=== PATIENT | female | born 1990 | race Caucasian/White ===

== ENCOUNTER 2018-04-07 05:58 | Emergency (ER) | payer BC ==
--- NOTE | 2018-04-07 06:22 | EDM.PDOC ---
ED HPI GENERAL MEDICAL PROBLEM - General Chief Complaint: Abdominal Pain Stated Complaint: nausea, vomitting Time Seen by Provider: 04/07/18 06:15 Source of Information: Reports: Patient, Old Records ([facility] chart/EMR) History Limitations: Reports: No Limitations - History of Present Illness INITIAL COMMENTS - FREE TEXT/NARRATIVE: The patient drove herself to the emergency room via private automobile for evaluation of rest of nausea and generalized abdominal pain and cramping with patient rating her discomfort at 10/10 on arrival. Patient did have an omelette at the [employer] in [place] for breakfast yesterday, however no direct known food poisoning, recent exposure to infection, etc. She initially had some nausea with 2 loose stools yesterday with symptoms starting at about 13:00 hours yesterday afternoon. Symptoms have progressed during the course of the night with at least 10 episodes of emesis since about midnight. She denies any gross hematuria, colic, or other UTI symptoms. Patient has not taken any medications for her symptoms to this point. No recent history of heartburn, significant diarrhea, melena, gross hematochezia, or any food intolerance, including fatty foods, etc.. The patient denies any chest pain/pressure, heart flutter, dizziness, orthostasis, orthopnea, diaphoresis, paresthesias, recent decreased exercise tolerance, or any other anginal-type symptoms. The patient also denies any recent fever, cough, wheezing, dyspnea, etc.. Onset: Gradual Onset Date: 04/06/18 Onset Time: 13:00 Duration: Constant, Getting Worse Location: Reports: Abdomen. Denies: Head, Face, Neck, Back, Pelvis, Upper Extremity, Left, Upper Extremity, Right, Lower Extremity, Left, Radiates to Quality: Reports: Ache, Other (Abdominal cramping) Severity: Severe Improves with: Reports: None Worsens with: Reports: None Context: Reports: Other (As above) Associated Symptoms: Reports: Nausea/Vomiting. 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 Denies: Glaucoma, Hard of Hearing, Macular Degeneration, Retinal Detachment Other HEENT History: Patient wears glasses Cardiovascular History: Reports: Other (See Below). Denies: Afib, Aneurysm, Arrhythmia, Blood Clots/VTE/DVT, CAD, Heart Murmur, High Cholesterol, Hypertension, Syncope Other Cardiovascular History: Patient does not know cholesterol status. Respiratory History: Reports: None. Denies: Asthma, COPD, Intubation, Difficult , Intubation, Previous, PE, Pneumothorax, Sleep Apnea, TB Gastrointestinal History: Reports: None, GERD. Denies: Celiac Disease, Cholelithiasis, Chronic Constipation, Chronic Diarrhea, Gastritis, GI Bleed, Hepatitis, Inflammatory Bowel Disease, Irritable Bowel Syndrome, Jaundice, Pancreatitis, PUD Genitourinary History: Reports: Hydronephrosis, Other (See Below). 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 Denies: Dysfunctional Uterine Bleeding, Endometriosis, Fibroids, Spontaneous , Therapeutic : 3 Para: 3 Other OB/BYN History: LMP on 03/18/18. 2 deliveries by with one delivery by LTCS secondary to breech presentation with no other problems during pregnancies or deliveries with all full-term deliveries. Musculoskeletal History: Reports: Back Pain, Chronic, Neck Pain, Chronic, Osteoarthritis. Denies: Amputation, Arthritis, Fracture, Gout, RA, SLE Neurological History: Denies: Cerebral Aneurysms, Concussion, CVA, Headaches, Chronic, Head Trauma, Migraines, Neuropathy, Peripheral, Seizure, TIA Psychiatric History: Reports: Anxiety, Depression. Denies: Abuse, Victim of, ADD, ADHD, Addiction, Psych Hospitalization(s), PTSD, Suicide Attempt, Suicidal Ideation Endocrine/Metabolic History: Reports: Hypothyroidism, Other (See Below). Denies : Diabetes, Gestational, Diabetes, Type I, Diabetes, Type II, Diabetes Mellitus , Type 3c, IDDM Other Endocrine/Metabolic History: hypothyroidism with first Hematologic History: Reports: None. Denies: Anemia, Blood Transfusion(s), Iron Deficiency Immunologic History: Reports: None. Denies: AIDS, HIV, SLE Oncologic (Cancer) History: Reports: None. Denies: Basal Cell Carcinoma, Breast , Hodgkin's Lymphoma, Leukemia, Lymphoma, Malignant Melanoma, Non-Hodgkin's Lymphoma, Squamous Cell Carcinoma Dermatologic History: Reports: None. Denies: Eczema, Psoriasis - Infectious Disease History Infectious Disease History: Reports: Chicken Pox. Denies: None, C-Difficile, Measles, Meningitis, Mononucleosis, MRSA, Mumps, Pertussis (Whooping Cough), Rheumatic Fever, RSV, Rubella, Scarlet Fever, Shingles, TB, VRE - Past Surgical History Head Surgeries/Procedures: Reports: None HEENT Surgical History: Reports: Myringotomy w Tube(s), Oral Surgery, Tonsillectomy, Other (See Below). Denies: Adenoidectomy, Cataract Surgery, Eye Surgery, Laser Surgery, LASIK, Naso-Sinus Surgery Other HEENT Surgeries/Procedures: PE tubes in April 1993 at age 3. Tonsillectomy on 10/10/02. Tooth extractions. Cardiovascular Surgical History: Reports: None. Denies: Varicose Respiratory Surgical History: Reports: None. Denies: Thoracentesis GI Surgical History: Denies: Appendectomy, Cholecystectomy, Colonoscopy, EGD, Hernia, Abdominal, Hernia, Inguinal, Hernia Repair/Other Female Surgical History: Reports: None, Section. Denies: Breast Biopsy, D&C, Tubal Ligation Endocrine Surgical History: Reports: None. Denies: Thyroid Biopsy Neurological Surgical History: Reports: None. Denies: C-Spine, Discectomy, Intracranial, Laminectomy, Lumbar Spine, Sacral Spine, Spinal Fusion, Thoracic Spine, Vertebroplasty Musculoskeletal Surgical History: Reports: None. Denies: Arthroscopic Procedure , Carpal Tunnel, Ganglion Cyst, Joint Replacement, ORIF, Shoulder Surgery Oncologic Surgical History: Reports: None Dermatological Surgical History: Reports: None - Past Imaging History Past Imaging History: Reports: CAT Scan (CT of the head on 07/11/02), Ultrasound ( Multiple OB ultrasounds last on 11/15/12.), Upper GI X-Ray/Series (03/03/2000) Social & Family History - Tobacco Use Smoking Status *Q: Never Smoker Tobacco Use Within Last Twelve Months: No Used Tobacco, but Quit: No Smoking Cessation Information Provided To Patient: No Second Hand Smoke Exposure: Yes Source of Second Hand Smoke Exposure: smokes Second Hand Smoke Education Provided: Yes - Caffeine Use Caffeine Use: Reports: Coffee (3 cups per day), Soda (5 cans per day). Denies: Energy Drinks, Tea - Alcohol Use Alcohol Use History: Yes Days Per Week of Alcohol Use: 0 Number of Drinks Per Day: 3 Number of Drinks Per Day Comment: Usually drinks beer once per month. No previous DWIs, problems with alcohol abuse, etc. Total Drinks Per Week: 0 Alcohol Use in Last Twelve Months: Yes Alcohol Use Frequency: Socially - Recreational Drug Use Recreational Drug Use: No Drug Use in Last 12 Months: No Recreational Drug Type: Denies: Amphetamines (Speed), Cocaine, Heroin, Inhalants (Glues, Solvents, Aerosols), LSD (Acid), Marijuana/Hashish, Methamphetamine, Morphine, Oxycodone - Living Situation & Occupation Living situation: Reports: (2013, 3 children), with Family ( and children) Occupation: Employed ([employer]) ED ROS GENERAL - Review of Systems Review Of Systems: ROS reveals no pertinent complaints other than HPI. ED EXAM, GI/ABD - Physical Exam Exam: See Below Exam Limited By: No Limitations General Appearance: Alert, WD/WN, No Apparent Distress Eyes: Bilateral: Normal Appearance (No nystagmus; patient wearing glasses), EOMI (PERRLA) Ears: Normal External Exam, Normal Canal, Hearing Grossly Normal, Normal TMs Nose: Normal Inspection, Normal Mucosa, No Blood Throat/Mouth: Normal Inspection, Normal Lips, Normal Teeth, Normal Gums, Normal Oropharynx, Normal Voice, No Airway Compromise. No: Dysphagia, Perioral Cyanosis Head: Atraumatic, Normocephalic. No: Facial Swelling, Facial Tenderness, Sinus Tenderness Neck: Normal Inspection, Supple, Non-Tender, Full Range of Motion. No: Lymphadenopathy (L), Lymphadenopathy (R), Thyromegaly Respiratory/Chest: No Respiratory Distress, Lungs Clear, Normal Breath Sounds, No Accessory Muscle Use, Chest Non-Tender. No: Pleural Rub, Retractions Cardiovascular: Normal Peripheral Pulses, Regular Rate, Rhythm, No Edema, No Gallop, No JVD, No Murmur, No Rub. No: Gallop/S3, Gallop/S4, Friction Rub GI/Abdominal Exam: Normal Bowel Sounds, Soft, Non-Tender, No Organomegaly, No Distention, No Abnormal Bruit, No Mass, Pelvis Stable, Other (obese). No: Guarding, Rebound (Female) Exam: Deferred Rectal (Female) Exam: Deferred Back Exam: Normal Inspection, Full Range of Motion. No: CVA Tenderness (L), CVA Tenderness (R), Muscle Spasm Extremities: Normal Inspection, Normal Range of Motion, Non-Tender, No Pedal Edema, Normal Capillary Refill. No: Lisa's Sign Neurological: Alert, Oriented, CN II-XII Intact, Normal Cognition, Normal Gait, No Motor/Sensory Deficits Psychiatric: Normal Affect, Normal Mood Skin Exam: Warm, Dry, Intact, Normal Color, No Rash Lymphatic: No Adenopathy Course - Vital Signs Last Recorded V/S: Last Vital Signs Temp 36.4 C 04/07/18 05:59 Pulse 66 04/07/18 07:55 Resp 14 04/07/18 07:55 BP 141/80 H 04/07/18 07:55 Pulse Ox 96 04/07/18 07:55 Vital Signs - 24 hr 04/07/18 04/07/18 05:59 07:55 Temperature [ 36.4 C Oral] Pulse, 70 66 Peripheral [ Left Pulse Oximetry] Respiratory 20 14 Rate Blood Pressure 142/85 H 141/80 H [Left Upper Arm ] O2 Sat by Pulse 99 96 Oximetry - Orders/Labs/Meds Orders: Active Orders 24 hr Category Date Time Status Peripheral IV Care [RC] . DIRECTED Care 04/07/18 06:26 Active Nothing Per Oral Diet [DIET] Diet 04/07/18 Breakfast Active Abdomen Series w Chest 1V [CR] Stat Exams 04/07/18 06:26 Taken CULTURE URINE [RM] Stat Lab 04/07/18 06:26 Ordered Sodium Chloride 0.9% [Saline Flush] Med 04/07/18 06:23 Active 10 ml FLUSH ASDIRECTED PRN Obtain Past Medical Record [OM.PC] Urgent Oth 04/07/18 06:26 Active Peripheral IV Insertion Adult [OM.PC] Stat Oth 04/07/18 06:26 Ordered Resuscitation Status Stat Resus Stat 04/07/18 06:23 Ordered Medication Orders Sodium Chloride (Saline Flush) 10 ml FLUSH ASDIRECTED PRN PRN Reason: Keep Vein Open Last Admin: 04/07/18 07:45 Dose: 10 ml Admin: 04/07/18 07:44 Dose: 10 ml Admin: 04/07/18 06:57 Dose: 10 ml Labs: Laboratory Tests 04/07/18 04/07/18 04/07/18 Range/Units 06:45 06:45 06:45 WBC 15.8 H (4.0-10.2) K/uL RBC 4.80 (3.77-5.09) M/uL Hgb 13.4 (11.7-15.5) g/dL Hct 40.4 (34.0-46.0) % MCV 84.2 (84.0-98.0) fL MCH 27.9 L (28.2-33.3) pg MCHC 33.2 (31.7-36.0) g/dL RDW 13.6 (11.2-14.1) % Plt Count 378 H (150-350) K/uL Neut % (Auto) 84.9 H (45.0-80.0) % Lymph % (Auto) 10.8 (10.0-50.0) % Griggs % (Auto) 3.5 (2.0-14.0) % Eos % (Auto) 0.6 (0.0-5.0) % Baso % (Auto) 0.2 (0.0-2.0) % Neut # (Auto) 13.41 H (1.40-7.00) K/uL Lymph # (Auto) 1.70 (0.50-3.50) K/uL Griggs # (Auto) 0.55 (0.00-1.00) K/uL Eos # (Auto) 0.09 (0.00-0.50) K/uL Baso # (Auto) 0.03 (0.00-0.20) K/uL PT 10.6 (9.8-11.7) SEC INR 1.0 APTT 26.8 (22.1-29.8) SEC Sodium (136-145) mmol/L Potassium (3.5-5.1) mmol/L Chloride (98-107) mmol/L Carbon Dioxide (21.0-32.0) mmol/L BUN (7-18) mg/dL Creatinine (0.51-1.17) mg/dL Est Cr Clr Drug Dosing mL/min Estimated GFR (MDRD) mL/min Glucose (74-106) mg/dL Hemoglobin A1c (4.3-5.7) % Lactic Acid (0.4-2.0) mmol/L Uric Acid (2.6-7.2) mg/dL Calcium (8.5-10.1) mg/dL Magnesium (1.8-2.4) mg/dL Total Bilirubin (0.2-1.0) mg/dL AST (15-37) U/L ALT (12-78) U/L Alkaline Phosphatase (46-116) IU/L Total Protein (6.4-8.2) g/dL Albumin (3.4-5.0) g/dL Amylase 50 (25-115) U/L Lipase (73-393) U/L HCG, Qual (NEGATIVE) Ethyl Alcohol (0.000-0.080) g/dL 04/07/18 04/07/18 04/07/18 Range/Units 06:45 06:45 06:45 WBC (4.0-10.2) K/uL RBC (3.77-5.09) M/uL Hgb (11.7-15.5) g/dL Hct (34.0-46.0) % MCV (84.0-98.0) fL MCH (28.2-33.3) pg MCHC (31.7-36.0) g/dL RDW (11.2-14.1) % Plt Count (150-350) K/uL Neut % (Auto) (45.0-80.0) % Lymph % (Auto) (10.0-50.0) % Griggs % (Auto) (2.0-14.0) % Eos % (Auto) (0.0-5.0) % Baso % (Auto) (0.0-2.0) % Neut # (Auto) (1.40-7.00) K/uL Lymph # (Auto) (0.50-3.50) K/uL Griggs # (Auto) (0.00-1.00) K/uL Eos # (Auto) (0.00-0.50) K/uL Baso # (Auto) (0.00-0.20) K/uL PT (9.8-11.7) SEC INR APTT (22.1-29.8) SEC Sodium 137 (136-145) mmol/L Potassium 4.0 (3.5-5.1) mmol/L Chloride 103 (98-107) mmol/L Carbon Dioxide 24.4 (21.0-32.0) mmol/L BUN 8 (7-18) mg/dL Creatinine 0.62 (0.51-1.17) mg/dL Est Cr Clr Drug Dosing 125.33 mL/min Estimated GFR (MDRD) > 60 mL/min Glucose 143 H (74-106) mg/dL Hemoglobin A1c (4.3-5.7) % Lactic Acid 1.6 (0.4-2.0) mmol/L Uric Acid 4.3 (2.6-7.2) mg/dL Calcium 9.3 (8.5-10.1) mg/dL Magnesium 1.9 (1.8-2.4) mg/dL Total Bilirubin 0.2 (0.2-1.0) mg/dL AST 17 (15-37) U/L ALT 28 (12-78) U/L Alkaline Phosphatase 175 H (46-116) IU/L Total Protein 8.1 (6.4-8.2) g/dL Albumin 3.5 (3.4-5.0) g/dL Amylase (25-115) U/L Lipase 109 (73-393) U/L HCG, Qual Negative (NEGATIVE) Ethyl Alcohol 0.000 (0.000-0.080) g/dL 04/07/18 Range/Units 06:45 WBC (4.0-10.2) K/uL RBC (3.77-5.09) M/uL Hgb (11.7-15.5) g/dL Hct (34.0-46.0) % MCV (84.0-98.0) fL MCH (28.2-33.3) pg MCHC (31.7-36.0) g/dL RDW (11.2-14.1) % Plt Count (150-350) K/uL Neut % (Auto) (45.0-80.0) % Lymph % (Auto) (10.0-50.0) % Griggs % (Auto) (2.0-14.0) % Eos % (Auto) (0.0-5.0) % Baso % (Auto) (0.0-2.0) % Neut # (Auto) (1.40-7.00) K/uL Lymph # (Auto) (0.50-3.50) K/uL Griggs # (Auto) (0.00-1.00) K/uL Eos # (Auto) (0.00-0.50) K/uL Baso # (Auto) (0.00-0.20) K/uL PT (9.8-11.7) SEC INR APTT (22.1-29.8) SEC Sodium (136-145) mmol/L Potassium (3.5-5.1) mmol/L Chloride (98-107) mmol/L Carbon Dioxide (21.0-32.0) mmol/L BUN (7-18) mg/dL Creatinine (0.51-1.17) mg/dL Est Cr Clr Drug Dosing mL/min Estimated GFR (MDRD) mL/min Glucose (74-106) mg/dL Hemoglobin A1c 5.7 (4.3-5.7) % Lactic Acid (0.4-2.0) mmol/L Uric Acid (2.6-7.2) mg/dL Calcium (8.5-10.1) mg/dL Magnesium (1.8-2.4) mg/dL Total Bilirubin (0.2-1.0) mg/dL AST (15-37) U/L ALT (12-78) U/L Alkaline Phosphatase (46-116) IU/L Total Protein (6.4-8.2) g/dL Albumin (3.4-5.0) g/dL Amylase (25-115) U/L Lipase (73-393) U/L HCG, Qual (NEGATIVE) Ethyl Alcohol (0.000-0.080) g/dL Meds: Medications Generic Name Dose Route Start Last Admin Trade Name Freq PRN Reason Stop Dose Admin Sodium Chloride 10 ml 04/07/18 06:23 04/07/18 07:45 Saline Flush FLUSH 10 ml ASDIRECTED PRN Administration Keep Vein Open Discontinued Medications Generic Name Dose Route Start Last Admin Trade Name Mejia PRN Reason Stop Dose Admin Famotidine 40 mg 04/07/18 06:23 04/07/18 06:52 Pepcid IVPUSH 04/07/18 06:24 40 mg ONETIME ONE Administration Fentanyl 50 mcg 04/07/18 07:24 04/07/18 07:30 Sublimaze IVPUSH 04/07/18 07:25 50 mcg ONETIME ONE Administration Lactated Ringer's 1,000 mls @ 999 mls/hr 04/07/18 06:23 04/07/18 06:56 Ringers, Lactated IV 04/07/18 07:23 999 mls/hr .BOLUS ONE Administration Ceftriaxone Sodium 1 gm/ 100 mls @ 200 mls/hr 04/07/18 07:25 04/07/18 07:42 Sodium Chloride IV 04/07/18 07:54 200 mls/hr ONETIME ONE Administration Metronidazole 500 mg/ Premix 100 mls @ 100 mls/hr 04/07/18 07:26 04/07/18 07: 43 IV 04/07/18 08:25 100 mls/hr ONETIME ONE Administration Metoclopramide HCl 10 mg 04/07/18 07:25 04/07/18 07:43 Reglan IVPUSH 04/07/18 07:26 10 mg ONETIME ONE Administration Ondansetron HCl 4 mg 04/07/18 06:23 04/07/18 06:50 Zofran IVPUSH 04/07/18 06:24 4 mg ONETIME ONE Administration Pantoprazole Sodium 40 mg 04/07/18 06:23 04/07/18 06:53 Protonix Iv IVPUSH 04/07/18 06:24 40 mg ONETIME ONE Administration - Radiology Interpretation Free Text/Narrative:: Acute abdominal x-rays shows evidence of moderate diffuse stool and nonspecific bowel gaseous pattern with no fluid levels, free air, ileus, obstruction, or intra-abdominal calcifications. Mild cardiomegaly and borderline pulmonary obstructive disease with no pulmonary infiltrates, CHF, pneumothorax, etc. Departure - Departure Time of Disposition: 09:40 Disposition: Home, Self-Care 01 Clinical Impression: Peptic reflux disease, Obesity (BMI 35.0-39.9 without comorbidity), Mixed anxiety depressive disorder, Tobacco abuse counseling, Hyperglycemia Nausea and vomiting Qualifiers: Vomiting type: unspecified Vomiting Intractability: non-intractable Qualified Code(s): R11.2 - Nausea with vomiting, unspecified Abdominal pain Qualifiers: Abdominal location: generalized Qualified Code(s): R10.84 - Generalized abdominal pain Osteoarthritis Qualifiers: Osteoarthritis location: multiple joints Osteoarthritis type: primary Qualified Code(s): M15.0 - Primary generalized (osteo)arthritis - Discharge Information Instructions: Abdominal Pain, Adult, [id number] Referrals: PCP,Unknown [Primary Care Provider] - Forms: ED Department Discharge, ED Return to Work/School Form Additional Instructions: 1. Follow up with your regular provider in 2 days for reevaluation and recommended repeat CBC. 2. Tylenol 650 mg by mouth every 4 hours and/or OTC ibuprofen 2-3 tabs by mouth every 6 hours with food as directed./needed. 3. May use antacids as needed 4. [place] diet including encouragement of oral fluids such as sports drinks, etc. for 24-48 hours as directed. Advance to regular diet as tolerated thereafter. 5. Work excuse- See Form 6. Stop all tobacco exposure [place] as directed with counselling, information, etc. given 7. Immediately after this visit verify that your cellular telephone's voicemail has been activated and is empty. Also verify that your home telephone 's answering machine is operating properly and has space to receive messages. Note that it is sometimes necessary for us to be able to contact you at a later date to discuss your medical care. - Problem List & Annotations (1) Abdominal pain SNOMED Code(s): 98558483 Code(s): R10.9 - UNSPECIFIED ABDOMINAL PAIN Status: Acute Priority: High Current Visit: Yes Onset Date: 04/06/18 Annotation/Comment:: She was aggressively treated as above, including IV fluids and additional IV Rocephin, IV Flagyl, high-dose IV Pepcid, and high-dose IV Protonix all given as GI prophylaxis. Note moderate leukocytosis likely secondary to stress reaction. Patient symptoms completely resolved at time of discharge. Various therapeutic options were discussed including outpatient antibiotic therapy therapy, which may not be warranted. Patient agrees to holding further antibiotic therapy for now with close follow-up by regular provider, including repeat CBC, etc. as per discharge instructions and work excuse provided. IV fentanyl required for abdominal pain control with sedation precautions given. Qualifiers: Abdominal location: generalized Qualified Code(s): R10.84 - Generalized abdominal pain (2) Nausea and vomiting SNOMED Code(s): 29437393 Code(s): R11.2 - NAUSEA WITH VOMITING, UNSPECIFIED Status: Acute Priority : High Current Visit: Yes Onset Date: 04/06/18 Annotation/Comment:: As above Qualifiers: Vomiting type: unspecified Vomiting Intractability: non-intractable Qualified Code(s): R11.2 - Nausea with vomiting, unspecified (3) Peptic reflux disease SNOMED Code(s): 021577339 Code(s): K21.9 - GASTRO-ESOPHAGEAL REFLUX DISEASE WITHOUT ESOPHAGITIS Status: Chronic Priority: Medium Current Visit: Yes Annotation/Comment:: Otherwise stable by history with high-dose IV Protonix and IV Pepcid given as above (4) Mixed anxiety depressive disorder SNOMED Code(s): 374597885 Code(s): F41.8 - OTHER SPECIFIED ANXIETY DISORDERS Status: Chronic Priority: Medium Current Visit: Yes Annotation/Comment:: Stable by history. Continue to observe closely by her regular provider. (5) Obesity (BMI 35.0-39.9 without comorbidity) SNOMED Code(s): 238584826, 964575009 Code(s): E66.9 - OBESITY, UNSPECIFIED Status: Chronic Priority: Medium Current Visit: Yes Annotation/Comment:: Strict low-fat, low-cholesterol diet with weight loss in moderation advisable (6) Osteoarthritis SNOMED Code(s): 525380347 Code(s): M19.90 - UNSPECIFIED OSTEOARTHRITIS, UNSPECIFIED SITE Status: Chronic Priority: Medium Current Visit: Yes Annotation/Comment:: Stable by history Qualifiers: Osteoarthritis location: multiple joints Osteoarthritis type: primary Qualified Code(s): M15.0 - Primary generalized (osteo)arthritis (7) Tobacco abuse counseling SNOMED Code(s): 129252914, 112878665, 774453937 Code(s): Z71.6 - TOBACCO ABUSE COUNSELING Status: Chronic Priority: Medium Current Visit: Yes Annotation/Comment:: The patient was counseled on tobacco exposure with information provided for her who she stop smoking [place]. - Problem List Review Problem List Initiated/Reviewed/Updated: Yes - My Orders Last 24 Hours: My Active Orders 04/07/18 06:23 Sodium Chloride 0.9% [Saline Flush] 10 ml FLUSH ASDIRECTED PRN Resuscitation Status Stat 04/07/18 06:26 Peripheral IV Care [RC] . DIRECTED Abdomen Series w Chest 1V [CR] Stat CULTURE URINE [RM] Stat Obtain Past Medical Record [OM.PC] Urgent Peripheral IV Insertion Adult [OM.PC] Stat 04/07/18 Breakfast Nothing Per Oral Diet [DIET] - Assessment/Plan Last 24 Hours: My Active Orders 04/07/18 06:23 Sodium Chloride 0.9% [Saline Flush] 10 ml FLUSH ASDIRECTED PRN Resuscitation Status Stat 04/07/18 06:26 Peripheral IV Care [RC] . DIRECTED Abdomen Series w Chest 1V [CR] Stat CULTURE URINE [RM] Stat Obtain Past Medical Record [OM.PC] Urgent Peripheral IV Insertion Adult [OM.PC] Stat 04/07/18 Breakfast Nothing Per Oral Diet [DIET] Assessment:: As above Plan: As above. Extensive precautions were given to the patient, who is in agreement with the treatment plan. See Patient Instructions for further treatment and plan.
[2018-04-07] MEDS ORDERED: Pantoprazole 40 MG Vial IVPUSH ONE (06:23)
[2018-04-07] MEDS ORDERED: Lactated Ringers 1,000 ML IV ONE (06:23)
[2018-04-07] MEDS ORDERED: Famotidine 20 MG/2 ML SDV IVPUSH ONE (06:23)
[2018-04-07] MEDS ORDERED: Ondansetron 4 MG/2 ML SDV IVPUSH ONE (06:23)
[2018-04-07] MEDS: Sodium Chloride 0.9% 10 ML Syringe FLUSH PRN ×3 (06:57→07:45)
[2018-04-07] MEDS ORDERED: fentaNYL 100 MCG/2 ML SDV IVPUSH ONE (07:24)
[2018-04-07] MEDS ORDERED: Metoclopramide 10 MG/2 ML SDV IVPUSH ONE (07:25)
[2018-04-07] MEDS ORDERED: cefTRIAXone 1 GM in Sodium Chloride 0.9% 100 ML IV ONE (07:25)
[2018-04-07] MEDS ORDERED: metroNIDAZOLE/Normal Saline 500 MG in Premix Bag 1 BAG IV ONE (07:26)
[2018-04-07 07:48] LABS: CHLORIDE,CL 103 mmol/L (98-107); SODIUM,NA 137 mmol/L (136-145)
== END 2018-04-07 09:40 | disposition home or self-care (01) ==
LOC: LL.ED 05:58
DX: K21.9 Gastro-esophageal reflux disease without esophagitis (principal); R10.84 Generalized abdominal pain; R73.9 Hyperglycemia, unspecified; M15.0 Primary generalized (osteo)arthritis; E66.9 Obesity, unspecified; F41.8 Other specified anxiety disorders; Z71.6 Tobacco abuse counseling; Z68.38 Body mass index [BMI] 38.0-38.9, adult; Z79.899 Other long term (current) drug therapy
CPT/HCPCS: 36415; 74022; 80053; 82150; 83036; 83605; 83690; 83735; 84550; 84703; 85025; 85610; 85730; 96361; 96365; 96367; 96375; 99284; C9113; G0480; J0696; J2405; J2765; J3010; J7050; J7120; S0028